=== PATIENT | female | born 1980 | race Caucasian/White ===

== ENCOUNTER 2018-08-18 17:57 | Emergency (ER) | payer OTHER ==
[2018-08-18 18:22] VITALS: BP 138/78; PULSE 66; TEMP 98.1; BMI 27.4
--- NOTE | 2018-08-18 18:23 | PDOC ---
Rapid Medical Evaluation Medical Evaluation: Allergies Allergy/AdvReac Type Severity Reaction Status Date / Time No Known Allergies Allergy Verified 08/18/18 18:19 08/18/18 18:22 The patient presents with a chief complaint of: left breast redness worsening over the last 6 weeks, no drainage, not nursing I have performed a brief in-person evaluation of this patient; Pertinent physical exam findings: ambulatory, in no respiratory distress, noted tender erythematous 2/3 cm mass to 7 oclock of left breast in areolar region. No nipple drainage I have ordered the following: breast u/s to r/o abscess The patient will proceed to the ED for further evaluation. Discharge Disposition - Diagnosis Breast pain, left - Referrals - Patient Instructions - Post Discharge Activity
--- NOTE | 2018-08-18 20:34 | PDOC ---
History of Present Illness - General Chief Complaint: Wound Stated Complaint: PAIN IN LT BREAST Time Seen by Provider: 08/18/18 18:24 History Source: Patient Exam Limitations: No Limitations - History of Present Illness Initial Comments: CHIEF COMPLAINT: 42 y/o afebrile female with no significant PMH c/o left breast lump x 1 month. HISTORY OF PRESENT ILLNESS: The patient states she noticed the lump 1 month ago but it was not painful. Over the past 1 week it's become red and painful. She denies fever, streaking, weight loss, discharge or bleeding from nipple, nipple inversion. She does not have a PMD but had a normal PAP smear 1 month ago. Vital signs on arrival are within normal limits. REVIEW OF SYSTEMS: GENERAL/CONSTITUTIONAL: No fever/chills. No weakness. No weight change. HEAD, EYES, EARS, NOSE AND THROAT: No change in vision. No ear pain or discharge. No sore throat. CARDIOVASCULAR: No chest pain or shortness of breath. SKIN: +Painful lump to left breast NEUROLOGIC: No headache, vertigo, loss of consciousness, or loss of sensation. PHYSICAL EXAM: VITAL_SIGNS: within normal limits GENERAL_APPEARANCE: alert, cooperative, mild obvious discomfort. MENTAL_STATUS: speech clear, oriented X 3, responds appropriately to questions. NEURO: motor intact and sensory intact in injured extremity. SKIN: 2cm in diameter, elevated, erythematous, warm lesion that is TTP of the left breast at the 7 o'clock position. The lesion travels underneath the areola and is felt under the skin at the 5 o'clock position. No streaking. No Cherri d'orange. No nipple inversion. No discharge/blood from the left nipple. No lesions felt in the left Tail of dias. Past History - Past Medical History Allergies/Adverse Reactions: Allergies Allergy/AdvReac Type Severity Reaction Status Date / Time No Known Allergies Allergy Verified 08/18/18 18:19 Home Medications: Ambulatory Orders Aspirin [ASA -] 325 mg PO ONCE 08/18/18 Cephalexin Monohydrate [Keflex -] 500 mg PO Q6H #28 capsule 08/18/18 Ibuprofen [Advil -] 600 mg PO TID PRN 08/18/18 COPD: No - Suicide/Smoking/Psychosocial Hx Smoking History: Never smoked *Physical Exam - Vital Signs Last Vital Signs Temp Pulse Resp BP Pulse Ox 98.1 F 66 16 138/78 99 08/18/18 18:21 08/18/18 18:21 08/18/18 18:21 08/18/18 18:21 08/18/18 18:21 Moderate Sedation - Procedure Monitoring Vital Signs: Procedure Monitoring Vital Signs Temperature 98.1 F 08/18/18 18:21 Pulse Rate 66 08/18/18 18:21 Respiratory Rate 16 08/18/18 18:21 Blood Pressure 138/78 08/18/18 18:21 O2 Sat by Pulse Oximetry (%) 99 08/18/18 18:21 Medical Decision Making - Medical Decision Making A/P: 38 y/o female with abscess vs mass to left breast. Plan is as follows: 1. Ultrasound left breast r/o abscess Ultrasound left breast IMPRESSION: no results from imaging pupil personnel services director after 4 hours will discharge patient. Suggested she call tomorrow morning for results Will send rx for keflex. INformed the patient it could be an infection but worst case scenario cancer. Provided her with 2 referrals and strongly encouraged her to f/u. The patient verbalizes understanding of all instructions, has no further questions and is awaiting discharge. *DC/Admit/Observation/Transfer Diagnosis at time of Disposition: Breast pain, left - Prescriptions Prescriptions: Cephalexin Monohydrate [Keflex -] 500 mg PO Q6H #28 capsule - Referrals Referrals: Maximiliano Marshall MD [Staff Physician] - Call tomorrow Jonathan Harvey MD [Staff Physician] - Call tomorrow - Patient Instructions Printed Discharge Instructions: DI for Breast Mass -- Uncertain Cause, DI for Skin Abscess Additional Instructions: Discharge Instructions: -You have a lump in your breast. It may be an infection. The worse case scenario is that the lump could be cancer. -It is very important that you call the 2 doctors referred to you to schedule follow up appointments as soon as possible for further testing -Antibiotics have been sent to your pharmacy; please take as prescribed -Return to the ER with any worsening or concerning symptoms Instrucciones de descarga: -Tienes un bulto en tu pecho. Puede ser lucretia infeccin. El peor de los casos es que el bulto podra ser cncer. -Es muy importante que llame a los 2 mdicos que lo hall remitido para programar citas de seguimiento dsouza pronto ronald sea posible para realizar ms pruebas. -Los antibiticos hall sido enviados a cárdenas farmacia; por favor tome segn lo prescrito -Regreso a la sadie de emergencias con cualquier empeoramiento o sntomas relacionados Print Language: MALTESE - Post Discharge Activity
--- NOTE | 2018-08-19 16:11 | PDOC ---
Patient Follow-up (Call Back) - Post ED Follow - Up Condition at time of discharge: Stable Disposition at time of original discharge: HOME Reason for Call Back: Radiology (Left breast fluid collection. Pt reports symptoms have improved and she has appointment with a surgeon.) Signs/Symptoms Improved: Yes
== END 2018-08-18 23:07 | disposition home or self-care (01) ==
LOC: JERFT 17:57
DX: N64.4 Mastodynia (principal)
CPT/HCPCS: 76642-TC-LT; 99281-25

== ENCOUNTER 2018-08-20 21:11 | Emergency (ER) | payer OTHER ==
[2018-08-20 21:14] VITALS: BP 110/51; PULSE 78; TEMP 98.3; BMI 27.2
--- NOTE | 2018-08-20 22:42 | PDOC ---
Attending Attestation - HPI HPI: 08/20/18 22:53 The patient is a 38 year old female, with no significant past medical history, who presents to the emergency department with, left breast lump. Patient notes she was recently evaluated in the ED and discharged with Keflex, OB, and general surgery follow up. She notes her symptoms have not resolved and the referring physicians did not accept her insurance, prompting her return. She denies recent fevers, chills, headache or dizziness. She denies recent nausea, vomit, diarrhea or constipation. She denies recent dysuria, frequency, urgency or hematuria. She denies recent chest pain or shortness of breath. Allergies: NKDA Past surgical history: None reported. Social history: Nonsmoker. Denies EtOH use and recreational drug use. <Laurie Mera - Last Filed: 08/20/18 22:52> - Resident Resident Name: Obie Juárez - ED Attending Attestation I have performed the following: I have examined & evaluated the patient, The case was reviewed & discussed with the resident, I agree w/resident's findings & plan, Exceptions are as noted - Physicial Exam PE: 08/20/18 23:01 Left breast with visible erythema on medial side of nipple, mild induration, 2 palpable mobile masses one medially and another inferolaterally No nipple discharge, smooth overlying skin, pink, perfusing, no signs of necrosis - Medical Decision Making 08/20/18 23:03 US report from prior visit with 2cm lesions consistent with abscess. Pt states that she was unable to arrange follow up with the physicians she was referred to. Will expedite appropriate follow up with gen surg breast/OB DC <Memo Marcus - Last Filed: 08/20/18 23:05> Attestations - Attestations 08/20/18 22:53 Documentation prepared by Laurie Mera, acting as medical reception for Memo Marcus MD. <Laurie Mera - Last Filed: 08/20/18 22:52>
--- NOTE | 2018-08-20 22:53 | PDOC ---
History of Present Illness - General Chief Complaint: Abscess Boil Stated Complaint: SENT BY PCP Time Seen by Provider: 08/20/18 21:58 History Source: Patient Exam Limitations: No Limitations - History of Present Illness Initial Comments: 08/20/18 22:39 Patient is a 38F here today complaining of a breast mass for 6 weeks. She was evaluated two days ago in the ED, diagnosed with a possible breast abscess. She reports taking keflex in that time period to no effect. US showed likely abscess. Patient reports a fractured work up at both [facility] and in the ED. She states that she is returning because the pain increased and she received a phone call stating that she may be able to have this drained. Denies fevers, chills, nausea, vomiting. Endorses compliance with antibiotics. Ibuprofen is relieving pain. Past History - Past Medical History Allergies/Adverse Reactions: Allergies Allergy/AdvReac Type Severity Reaction Status Date / Time No Known Allergies Allergy Verified 08/20/18 21:14 Home Medications: Ambulatory Orders Sulfamethoxazole/Trimethoprim [Bactrim Ds -] 1 tab PO BID #14 tablet 08/20/18 COPD: No - Suicide/Smoking/Psychosocial Hx Smoking History: Never smoked Review of Systems - Review of Systems Comments:: 08/20/18 22:52 GENERAL/CONSTITUTIONAL: No fever or chills. No weakness. HEAD, EYES, EARS, NOSE AND THROAT: No change in vision. No sore throat. CARDIOVASCULAR: No chest pain or shortness of breath RESPIRATORY: No cough, wheezing, or hemoptysis. GASTROINTESTINAL: No nausea, vomiting, diarrhea or constipation. GENITOURINARY: No dysuria, frequency, or change in urination. MUSCULOSKELETAL: No joint or muscle swelling or pain. No neck or back pain. SKIN: No rash NEUROLOGIC: No headache, vertigo, loss of consciousness, or change in strength/ sensation. ALLERGIC/IMMUNOLOGIC: No hives or skin allergy. *Physical Exam - Vital Signs Last Vital Signs Temp Pulse Resp BP Pulse Ox 98.3 F 78 18 110/51 L 99 08/20/18 21:12 08/20/18 21:12 08/20/18 21:12 08/20/18 21:12 08/20/18 21:12 - Physical Exam Comments: 08/20/18 22:53 GENERAL: Awake, alert, and fully oriented, in no acute distress L BREAST: 1x1cm area of erythema at 9 o'clock, small mobile masses at 3 o'clock and 6 o'clock HEAD: No signs of trauma, normocephalic, atraumatic EYES: PERRLA, EOMI, sclera anicteric, conjunctiva clear ENT: Auricles normal inspection, hearing grossly normal, nares patent, oropharynx clear without exudates. Moist mucosa NECK: Normal ROM, supple, no lymphadenopathy, JVD, or masses LUNGS: No distress, speaks full sentences, clear to auscultation bilaterally HEART: Regular rate and rhythm, normal S1 and S2, no murmurs, rubs or gallops, peripheral pulses normal and equal bilaterally. NEUROLOGICAL: Cranial nerves II through XII grossly intact. Normal speech, normal gait, no focal sensorimotor deficits SKIN: Warm, Dry, normal turgor, no rashes or lesions noted. Moderate Sedation - Procedure Monitoring Vital Signs: Procedure Monitoring Vital Signs Temperature 98.3 F 08/20/18 21:12 Pulse Rate 78 08/20/18 21:12 Respiratory Rate 18 08/20/18 21:12 Blood Pressure 110/51 L 08/20/18 21:12 O2 Sat by Pulse Oximetry (%) 99 08/20/18 21:12 Medical Decision Making - Medical Decision Making 08/20/18 22:56 Patient is 38F with breast mass. Currently on keflex. Patient has been unable to get follow up 2/2 insurance issues. Do not believe appropriate to drain at this time, will increase coverage to bactrim. Will discharge with other referrals, instructions to search for provider that takes their insurance. *DC/Admit/Observation/Transfer Diagnosis at time of Disposition: Breast pain, left - Discharge Dispostion Disposition: HOME Condition at time of disposition: Good Decision to Admit order: No - Prescriptions Prescriptions: Sulfamethoxazole/Trimethoprim [Bactrim Ds -] 1 tab PO BID #14 tablet - Referrals Referrals: Rohit Carrera MD [Staff Physician] - Deven Rangel MD [Staff Physician] - Homar Zamudio MD [Staff Physician] - Malvin Mares MD [Staff Physician] - - Patient Instructions Printed Discharge Instructions: DI for Breast Pain (Mastalgia) Additional Instructions: Please follow up with one of the surgeons below. If they do not accept your insurance, clinics are available at [facility], [facility], or [facility]. You can also search for 'General Surgeons' or 'Breast Surgeons' in your area that accept your insurance. - Post Discharge Activity Forms/Work/School Notes: Back to Work
== END 2018-08-20 23:21 | disposition home or self-care (01) ==
LOC: JER 21:11
DX: N64.4 Mastodynia (principal); N63.20 Unspecified lump in the left breast, unspecified quadrant
CPT/HCPCS: 99281-25

== ENCOUNTER 2018-08-31 10:55 | Day surgery (SDC) | payer OTHER ==
--- NOTE | 2018-08-31 13:31 | PDOC ---
History of Present Illness - General History Source: Patient - History of Present Illness Timing/Duration: other <XochitlCheyenne - Last Filed: 08/31/18 15:05> <Noe Albrecht - Last Filed: 09/03/18 09:37> - General Chief Complaint: Pain Stated Complaint: LUMP ON BREAST Time Seen by Provider: 08/31/18 13:21 Past History - Past Medical History COPD: No - Immunization History Immunization Up to Date: Yes - Suicide/Smoking/Psychosocial Hx Smoking History: Never smoked Hx Alcohol Use: No Drug/Substance Use Hx: No <KyrgyzCheyenne - Last Filed: 08/31/18 15:05> <Noe Albrecht - Last Filed: 09/03/18 09:37> - Past Medical History Allergies/Adverse Reactions: Allergies Allergy/AdvReac Type Severity Reaction Status Date / Time No Known Allergies Allergy Verified 08/31/18 11:50 Home Medications: Ambulatory Orders Acetaminophen W/ Codeine #3 [Tylenol # 3 -] 1 tab PO Q6H PRN #12 tablet MDD 4 *Physical Exam - Vital Signs Last Vital Signs Temp Pulse Resp BP Pulse Ox 98.3 F 64 18 124/67 99 08/31/18 11:51 08/31/18 11:51 08/31/18 11:51 08/31/18 11:51 08/31/18 11:51 - Physical Exam General Appearance: Yes: Appropriately Dressed. No: Apparent Distress HEENT: positive: Normal Voice Neck: positive: Supple. negative: Lymphadenopathy (R), Lymphadenopathy (L) Respiratory/Chest: negative: Respiratory Distress Integumentary: positive: Dry, Warm, Other (4x6cm induration to inferior L breast w/ ?1x1 cm area of erythema at site of medial areola) Neurologic: positive: Fully Oriented, Alert, Normal Mood/Affect <KyrgyzCheyenne - Last Filed: 08/31/18 15:05> - Vital Signs Last Vital Signs Temp Pulse Resp BP Pulse Ox 97.9 F 61 20 111/54 L 99 09/02/18 09:00 09/02/18 09:00 09/02/18 09:00 09/02/18 09:00 09/01/18 22:00 <Noe Albrecht - Last Filed: 09/03/18 09:37> Moderate Sedation - Procedure Monitoring Vital Signs: Procedure Monitoring Vital Signs Temperature 98.3 F 08/31/18 11:51 Pulse Rate 64 08/31/18 11:51 Respiratory Rate 18 08/31/18 11:51 Blood Pressure 124/67 08/31/18 11:51 O2 Sat by Pulse Oximetry (%) 99 08/31/18 11:51 <Cheyenne Leung - Last Filed: 08/31/18 15:05> - Procedure Monitoring Vital Signs: Procedure Monitoring Vital Signs Temperature 97.9 F 09/02/18 09:00 Pulse Rate 61 09/02/18 09:00 Respiratory Rate 20 09/02/18 09:00 Blood Pressure 111/54 L 09/02/18 09:00 O2 Sat by Pulse Oximetry (%) 99 09/01/18 22:00 <Noe Albrecht - Last Filed: 09/03/18 09:37> ED Treatment Course - LABORATORY CBC & Chemistry Diagram: 08/31/18 13:50 08/31/18 13:50 <Cheyenne Leung - Last Filed: 08/31/18 15:05> - LABORATORY CBC & Chemistry Diagram: 08/31/18 13:50 08/31/18 13:50 - ADDITIONAL ORDERS Additional order review: 09/01/18 09:30 Gram Stain - Final Abscess Wound Culture - Final NO AEROBIC OR ANAEROBIC GROWTH OBTAINED. 08/31/18 13:50 RBC 4.99 MCV 74.3 L MCHC 33.6 RDW 15.2 MPV 8.6 Neutrophils % 76.8 Lymphocytes % 17.6 Monocytes % 4.5 Eosinophils % 0.9 Basophils % 0.2 - Medications Given in the ED: ED Medications Discontinued Medications Generic Name Dose Route Start Last Admin Trade Name Freq PRN Reason Stop Dose Admin Acetaminophen 1,000 mg 09/01/18 10:31 09/01/18 10:45 Ofirmev Injection - IVPB 09/01/18 10:32 1,000 mg ONCE ONE Administration Acetaminophen 1,000 mg 09/01/18 10:32 09/01/18 23:12 Ofirmev Injection - IVPB 1,000 mg Q6H PRN Administration PAIN LEVEL 6-10 Fentanyl 25 mcg 09/01/18 10:11 09/01/18 10:55 Sublimaze Injection - IVPUSH 25 mcg [id number] PRN Administration PAIN-PACU ORDER X 4 DOSES ONLY Clindamycin Phosphate 600 mg in 50 mls @ 100 mls/hr 08/31/18 14:17 08/31/18 15:22 Cleocin 600 Mg Premix Ivpb - IVPB 08/31/18 14:46 100 mls/hr ONCE ONE Administration Protocol Cefazolin Sodium 1 gm in 50 mls @ 100 mls/hr 09/01/18 10:00 09/01/18 09:09 Ancef 1 Gm Premixed Ivpb - IVPB 100 mls/hr Q8H-IV CLEMENTINE Administration Lactated Ringer's 1,000 ml in 1,000 mls @ 75 mls/hr 09/01/18 10:45 09/01/18 10:45 Lactated Ringers Solution IV Not Given ASDIR CLEMENTINE Cefazolin Sodium 1 gm in 50 mls @ 100 mls/hr 09/01/18 18:00 09/02/18 09:10 Ancef 1 Gm Premixed Ivpb - IVPB 100 mls/hr Q8H-IV CLEMENTINE Administration Ketorolac Tromethamine 30 mg 08/31/18 13:31 09/01/18 11:10 Toradol Injection - IVPUSH 08/31/18 13:32 30 mg ONCE ONE Administration Ketorolac Tromethamine 30 mg 09/02/18 08:26 09/02/18 08:56 Toradol Injection - IVPUSH 09/07/18 08:25 30 mg Q6H PRN Administration PAIN LEVEL 1-5 Morphine Sulfate 2 mg 09/02/18 07:21 09/02/18 07:50 Morphine Sulfate IVPUSH 09/02/18 07:22 2 mg ONCE ONE Administration <Noe Albrecht - Last Filed: 09/03/18 09:37> Medical Decision Making - Medical Decision Making 08/31/18 13:29 38 yo F, here for 3rd visit in the past 2 weeks for L breast abscess/ cellulitis. Has since been given 2 course of antibiotics with initial improvement in pain but states for the past several days, pain has recurred and is severe. No fever or chills. States she saw Dr. Carrera last week and was put on the schedule for I&D in the OR, but was unable to follow-up secondary to insurance issues. Not currently breast-feeding or . No personal history of breast disease, but does have remote family history of breast cancer See exam L breast abscess Not improve w/ multiple courses of abx -pain control -IV abx -labs -US -d/w surgery 08/31/18 14:[address] Carrera of surgery, who recommends IV antibiotics and admit to his service for I&D in the a.m. 08/31/18 15:05 Results reviewed and discussed with Dr. Carrera who is currently at bedside <Cheyenne Leung - Last Filed: 08/31/18 15:05> - Medical Decision Making 09/03/18 09:37 The patient was seen and evaluated in conjunction with TREVOR Leung under my direct supervision, ancillary studies were reviewed. I agree with the plan as outlined by TREVOR Leung . <Noe Albrecht - Last Filed: 09/03/18 09:37> *DC/Admit/Observation/Transfer - Discharge Dispostion Decision to Admit order: Yes <Cheyenne Leung - Last Filed: 08/31/18 15:05> <Noe Albrecht - Last Filed: 09/03/18 09:37> Diagnosis at time of Disposition: Left breast abscess - Discharge Dispostion Disposition: HOME Condition at time of disposition: Fair
[2018-08-31] MEDS ORDERED: KETOROLAC TROMETHAMINE 30 MG/1 ML VIAL ONE (13:40)
[2018-08-31] MEDS: KETOROLAC TROMETHAMINE 30 MG/1 ML VIAL IVPUSH ONE (13:53)
[2018-08-31 14:15] LABS: BASO % 0.2 % (0-2.0); EOS % 0.9 % (0-4.5); HEMATOCRIT 37.1 % (32.4-45.2); HEMOGLOBIN 12.5 GM/dL (10.7-15.3); LYMPH % 17.6 % (8-40); MCHC 33.6 g/dl (32.0-36.0); MEAN CELL VOLUME 74.3 fl (80-96); MEAN PLT VOLUME 8.6 fl (7.5-11.1); MONO % 4.5 % (3.8-10.2); NEUT % 76.8 % (42.8-82.8); PLATELET COUNT 331 K/MM3 (134-434); RBC 4.99 M/mm3 (3.60-5.2); RDW 15.2 % (11.6-15.6); WHITE BLOOD COUNT 8.1 K/mm3 (4.0-10.0)
[2018-08-31] MEDS ORDERED: CLINDAMYCIN 600MG PREMIX IVPB 600 MG/50 ML BAG IVPB ONE ×2 (14:17→15:18)
[2018-08-31 14:21] LABS: HCG,QUALITATIVE URINE Negative; URINE APPEARANCE SLCLOUDY; URINE BILIRUBIN NEGATIVE (<2.0 mg/dL); URINE COLOR YELLOW; URINE GLUCOSE (UA) NEGATIVE (NEGATIVE); URINE KETONE NEGATIVE (NEGATIVE); URINE LEUK ESTERASE TRACE (NEGATIVE); URINE NITRITE NEGATIVE (NEGATIVE); URINE PROTEIN NEGATIVE (NEGATIVE); URINE UROBILINOGEN NEGATIVE mg/dL (0.2-1.0)
[2018-08-31 14:37] LABS: INR 1.12 (0.83-1.09); PROTHROMBIN TIME (PATIENT) 13.2 SEC (9.7-13.0)
[2018-08-31 14:39] LABS: EPI CELLS MODERATE /HPF (FEW); URINE MUCUS RARE
[2018-08-31 14:55] LABS: ALBUMIN 3.8 g/dl (3.4-5.0); ALK PHOS 121 U/L (45-117); ANION GAP 7 MMOL/L (8-16); BILIRUBIN,TOTAL 0.3 mg/dL (0.2-1); BLOOD UREA NITROGEN 9 mg/dL (7-18); CALCIUM 8.8 mg/dL (8.5-10.1); CHLORIDE 103 mmol/L (98-107); CO2 27 mmol/L (21-32); CREATININE 0.5 mg/dL (0.55-1.3); GLUCOSE,RANDOM 83 mg/dL (74-106); SGOT/AST 14 U/L (15-37); SGPT/ALT 23 U/L (13-61); SODIUM 137 mmol/L (136-145); TOT PROT 7.7 g/dl (6.4-8.2)
--- NOTE | 2018-08-31 16:56 | SPA.PREOP ---
- PRE-OP NOTE Dx: Left breast abscess Planned Procedure: I&D of left breast abscess 09/01 Surgeon: Dr Rohit Carrera Last Vital Signs Temp Pulse Resp BP Pulse Ox 98.3 F 64 18 124/67 99 08/31/18 11:51 08/31/18 11:51 08/31/18 11:51 08/31/18 11:51 08/31/18 11:51 Lab Results WBC 8.1 K/mm3 (4.0-10.0) 08/31/18 13:50 RBC 4.99 M/mm3 (3.60-5.2) 08/31/18 13:50 Hgb 12.5 GM/dL (10.7-15.3) 08/31/18 13:50 Hct 37.1 % (32.4-45.2) 08/31/18 13:50 MCV 74.3 fl (80-96) L 08/31/18 13:50 MCHC 33.6 g/dl (32.0-36.0) 08/31/18 13:50 RDW 15.2 % (11.6-15.6) 08/31/18 13:50 Plt Count 331 K/MM3 (134-434) 08/31/18 13:50 Sodium 137 mmol/L (136-145) 08/31/18 13:50 Potassium 4.0 mmol/L (3.5-5.1) 08/31/18 13:50 Chloride 103 mmol/L (98-107) 08/31/18 13:50 Carbon Dioxide 27 mmol/L (21-32) 08/31/18 13:50 Anion Gap 7 MMOL/L (8-16) L 08/31/18 13:50 BUN 9 mg/dL (7-18) 08/31/18 13:50 Creatinine 0.5 mg/dL (0.55-1.3) L 08/31/18 13:50 Random Glucose 83 mg/dL (74-106) 08/31/18 13:50 Calcium 8.8 mg/dL (8.5-10.1) 08/31/18 13:50 Blood Type O POSITIVE 08/31/18 13:50 Antibody Screen Negative 08/31/18 13:50 INR 1.12 (0.83-1.09) H 08/31/18 13:50 - IMAGING Other: Report Reviewed (Breast U/S: 08/31/18: Again noted in the 9:00 periareolar region of the left breast, intradermally is a 2.5x1.9x0.3cm fluid collection.) - ASSESSMENT/PLAN 1. Make NPO after midnight except po meds 2. GI/DVT PPX 3. Medical optimization / clearance 4. Consent to be obtained by surgeon after risks, benefits and alternatives discussed with patient and or Health Care Proxy.
[2018-08-31] MEDS ORDERED: ACETAMINOPHEN 500 MG TABLET (FP) PO ONE (23:07)
[2018-09-01 00:46] VITALS: BMI 26.7
[2018-09-01] MEDS ORDERED: ACETAMINOPHEN 325 MG TABLET (FP) PO PRN ×2 (07:12→08:15)
[2018-09-01] MEDS ORDERED: CEFAZOLIN 1 GM in DEXTROSE 5%-WATER - 50 ML IVPB SCH (07:30)
--- NOTE | 2018-09-01 09:06 | HP ---
CHIEF COMPLAINT: left breast abscess PCP: unknown HISTORY OF PRESENT ILLNESS: 38 y/o F w/ no significant PMHx now admitted with left breast abscess, planned for I&D in OR. Pt reports breast abscess started 6 weeks ago. Pt was seen by in ED on 2 separate occasions and given 2 separate courses of PO abx (Keflex, Bactrim DS). Reports completing both courses without improvement in sxs. Denies fever/chills at home. Recent Travel: none PAST MEDICAL HISTORY: none PAST SURGICAL HISTORY: unknown Social History: Smoking:no Alcohol:social Drugs: no Family History: unknown Allergies: none No Known Allergies Allergy (Verified 08/31/18 11:50) HOME MEDICATIONS: none Home Medications Medication Instructions Recorded NK [No Known Home Medication] 08/31/18 REVIEW OF SYSTEMS CONSTITUTIONAL: Absent: fever, chills CARDIOVASCULAR: Absent: chest pain RESPIRATORY: Absent: cough, shortness of breath GASTROINTESTINAL: Absent: abdominal pain PHYSICAL EXAMINATION Vital Signs - 24 hr 08/31/18 08/31/18 08/31/18 11:51 18:00 19:50 Temperature 98.3 F 98.1 F Pulse Rate 64 70 Pulse Rate [ 69 Apical] Respiratory 18 18 18 Rate Blood Pressure 124/67 124/75 Blood Pressure 104/54 L [Right Arm] O2 Sat by Pulse 99 100 Oximetry (%) 08/31/18 08/31/18 09/01/18 22:00 22:54 06:07 Temperature 98.2 F 98.2 F 98.2 F Pulse Rate 55 L 76 92 H Pulse Rate [ Apical] Respiratory 16 20 Rate Blood Pressure 111/71 157/78 105/63 Blood Pressure [Right Arm] O2 Sat by Pulse 100 Oximetry (%) 09/01/18 08:55 Temperature 98.5 F Pulse Rate 59 L Pulse Rate [ Apical] Respiratory 20 Rate Blood Pressure 90/46 L Blood Pressure [Right Arm] O2 Sat by Pulse Oximetry (%) GENERAL: Awake, alert, and fully oriented, in no acute distress. HEAD: Normal with no signs of trauma. LUNGS: Breath sounds equal, clear to auscultation bilaterally. No wheezes, and no crackles. No accessory muscle use. Breast: left breast with +induration/ttp along nipple crease from 4-8 o'clock position. HEART: Regular rate and rhythm, normal S1 and S2. ABDOMEN: Soft, nontender, not distended, normoactive bowel sounds, no guarding, no rebound. Laboratory Results - last 24 hr 08/31/18 08/31/18 08/31/18 13:50 13:50 13:50 WBC 8.1 RBC 4.99 Hgb 12.5 Hct 37.1 MCV 74.3 L MCH 25.0 L MCHC 33.6 RDW 15.2 Plt Count 331 MPV 8.6 Absolute Neuts (auto) 6.2 Neutrophils % 76.8 Lymphocytes % 17.6 Monocytes % 4.5 Eosinophils % 0.9 Basophils % 0.2 Nucleated RBC % 0 PT with INR 13.20 H INR 1.12 H Sodium Potassium Chloride Carbon Dioxide Anion Gap BUN Creatinine Creat Clearance w eGFR Random Glucose Calcium Total Bilirubin AST ALT Alkaline Phosphatase Total Protein Albumin Urine Color Yellow Urine Appearance Slcloudy Urine pH 6.0 Ur Specific [place] 1.011 Urine Protein Negative Urine Glucose (UA) Negative Urine Ketones Negative Urine Blood Negative Urine Nitrite Negative Urine Bilirubin Negative Urine Urobilinogen Negative Ur Leukocyte Esterase Trace Urine WBC (Auto) 1 Urine RBC (Auto) <1 Ur Epithelial Cells Moderate Urine Mucus Rare Urine HCG, Qual Negative Blood Type Antibody Screen 08/31/18 08/31/18 13:50 13:50 WBC RBC Hgb Hct MCV MCH MCHC RDW Plt Count MPV Absolute Neuts (auto) Neutrophils % Lymphocytes % Monocytes % Eosinophils % Basophils % Nucleated RBC % PT with INR INR Sodium 137 Potassium 4.0 Chloride 103 Carbon Dioxide 27 Anion Gap 7 L BUN 9 Creatinine 0.5 L Creat Clearance w eGFR > 60 Random Glucose 83 Calcium 8.8 Total Bilirubin 0.3 AST 14 L ALT 23 Alkaline Phosphatase 121 H Total Protein 7.7 Albumin 3.8 Urine Color Urine Appearance Urine pH Ur Specific [place] Urine Protein Urine Glucose (UA) Urine Ketones Urine Blood Urine Nitrite Urine Bilirubin Urine Urobilinogen Ur Leukocyte Esterase Urine WBC (Auto) Urine RBC (Auto) Ur Epithelial Cells Urine Mucus Urine HCG, Qual Blood Type O POSITIVE Antibody Screen Negative ASSESSMENT/PLAN: 38 y/o F w/ no significant PMHx now admitted with Left breast abscess, planned for OR today with Dr Carrera for I&D. -NPO -Ancef 1g q8hrs -B/L SCDs -Labs reviewed from yesterday pt seen and examined with attending Dr Carrera Problem List - Problem (1) Left breast abscess Code(s): N61.1 - ABSCESS OF THE BREAST AND NIPPLE Visit type - Emergency Visit Emergency Visit: Yes Care time: The patient presented to the Emergency Department on the above date and was hospitalized for further evaluation of their emergent condition. - New Patient This patient is new to me today: Yes Date on this admission: 09/02/18 - Critical Care Critical Care patient: No
[2018-09-01] MEDS ORDERED: MIDAZOLAM HCL 2 MG/2 ML SINGLE DOSE VIAL ONE (09:40)
[2018-09-01] MEDS ORDERED: DEXAMETHASONE SOD PHOSPHATE 4 MG/1 ML VIAL ONE (09:41)
[2018-09-01] MEDS ORDERED: PROPOFOL 20 ML ONE (09:42)
[2018-09-01] MEDS ORDERED: LIDOCAINE HCL/PF 2% SDV 5ML VIAL ONE (09:42)
[2018-09-01] MEDS ORDERED: CEFAZOLIN 1 GM/D5W 1 GM/50 ML BAG IVPB SCH (10:00)
[2018-09-01] MEDS ORDERED: ACETAMINOPHEN INJECTION 100 ML IVPB ONE (10:26)
--- NOTE | 2018-09-01 10:29 | OP ---
Operative Note - Note: Operative Date: 09/01/18 Pre-Operative Diagnosis: left breast abscess and mass Operation: I and D left breast abscess and incisional bx. Post-Operative Diagnosis: Same as Pre-op Surgeon: Rohit Carrera Anesthesiologist/MD PHYSICIAN DERMATOLOGIST: Saravanan Salcido Anesthesia: General Specimens Removed: incisional bx. left breast mas and C and S abscess Estimated Blood Loss (mls): 10 Drains & Tubes with Location: deb and packing
[2018-09-01] MEDS ORDERED: ACETAMINOPHEN 1000 MG/100 ML VIAL (NON FORMULARY) IVPB ONE (10:31)
[2018-09-01] MEDS ORDERED: KETOROLAC TROMETHAMINE 30 MG/1 ML VIAL IVPUSH ONE (10:41)
[2018-09-01] MEDS ORDERED: LACTATED RINGERS SOLUTION 1,000 ML/1,000 ML INFUS.BAG IV SCH (10:45)
[2018-09-01] MEDS: KETOROLAC TROMETHAMINE 30 MG/1 ML VIAL IVPUSH ONE (11:10)
[2018-09-01] MEDS: ACETAMINOPHEN 1000 MG/100 ML VIAL (NON FORMULARY) IVPB PRN ×2 (16:25→23:12)
[2018-09-01] MEDS: CEFAZOLIN 1 GM/D5W 1 GM/50 ML BAG IVPB SCH (18:26)
[2018-09-02] MEDS: CEFAZOLIN 1 GM/D5W 1 GM/50 ML BAG IVPB SCH ×2 (02:12→09:10)
[2018-09-02] MEDS ORDERED: MORPHINE SULFATE 2 MG/ML VIAL IVPUSH ONE (07:21)
[2018-09-02] MEDS ORDERED: CEFAZOLIN 1 GM/D5W 1 GM/50 ML BAG IVPB SCH (07:30)
--- NOTE | 2018-09-02 08:01 | OP ---
DATE OF OPERATION: PREOPERATIVE DIAGNOSIS: Left breast abscess and mass. POSTOPERATIVE DIAGNOSIS: Left breast abscess and mass. PROCEDURE: Incision and drainage of left breast abscess and incisional biopsy of the left breast mass. SURGEON: Rohit Carrera MD ANESTHESIA: General. OPERATIVE FINDINGS: There was a left breast abscess at approximately the 7-9 o' clock position at the nipple-areolar border with tunneling medially and towards the 3 o'clock position of the left breast at the nipple-areolar border, with extensive fibrotic retroareolar changes consistent with an ill-defined mass. The rest of the findings are unremarkable. DESCRIPTION OF PROCEDURE: The patient was placed on the operating table in supine position, and after the induction of general anesthesia, the patient's left breast was prepped with ChloraPrep and draped in sterile fashion. A timeout was taken , and a circumareolar incision was made over the area of fluctuance in the left breast at 9 o'clock, with drainage of purulent material. This was sent for culture and sensitivity. All loculations were broken up using blunt dissection. Further dissection was carried towards the 3 o'clock area of the nipple-areolar border and all loculations and purulent drainage removed. Copious irrigation was carried out with sterile water, and then using a scalpel, a portion of the retroareolar mass was excised and sent for pathological examination. Hemostasis was secured with electrocautery, and then a Reggie drain placed into the wound along with 1/2- inch Iodoform packing. A single nylon suture was placed at the midpoint of the incision to reapproximate the nipple-areolar border and anchor the Gall[place] drain. Dry sterile dressings were placed and the procedure terminated at this point and the patient aroused from general anesthesia and transferred to the postanesthesia care unit in stable condition, awake and alert. ESTIMATED BLOOD LOSS: 10 mL REPLACEMENT: Crystalloid. DRAINS: One Reggie and 1/2-inch packing in the wound. SPECIMENS: Portion of left breast mass and culture and sensitivity of purulent drainage to microbiology. I, Rohit Carrera, was physically present in the operating room from the time the patient was placed on the operating table until she was transferred to the postanesthesia care unit in [facility]. Rohit Bartlett MD /[id number] MTDD
[2018-09-02] MEDS ORDERED: oxyCODONE HCL 5 MG TABLET PO PRN (08:24)
[2018-09-02] MEDS ORDERED: KETOROLAC TROMETHAMINE 30 MG/1 ML VIAL IVPUSH PRN (08:26)
--- NOTE | 2018-09-02 09:43 | PN ---
Progress Note (short form) - Note Progress Note: POD 1, s/p I and D left breast abscess and incisional bx. Pt seen and examined. States she is doing well this AM. Pain has been controlled with PO and Iv pain meds. Has been oob to the bathroom. Tolerating PO. Denies n/v/d, cp/sob, calf pain/edema. Vital Signs Temp 98.8 F 09/02/18 05:41 Pulse 53 L 09/02/18 05:41 Resp 20 09/02/18 05:41 BP 105/51 L 09/02/18 05:41 Pulse Ox 99 09/01/18 22:00 Intake & Output 09/01/18 09/01/18 09/02/18 11:59 23:59 11:59 Intake Total 485 400 50 Output Total 5 Balance 480 400 50 Intake: IV 485 300 LACTATED RINGERS SOLUTION 300 1,000 ml In 1,000 ml @ 75 mls/hr IV ASDIR CLEMENTINE Rx #:[id number] SL 10 IVPB 100 50 Oral 0 0 Output: Urine 0 Estimated Blood Loss 5 Other: Voiding Method Toilet Toilet # Unmeasured Voids Void 0 2 Bowel Movement No CBC, BMP 08/31/18 13:50 08/31/18 13:50 Gen: awake, alert, nad Resp: unlabored Breast: L breast 4x4 with minimal dried blood and serous drainage. Reggie and packing removed, wound bed clean based with scant fibrinous exudate and serous drainage. No surrounding erythema, induration resolved. A/P: 38 y/o F w/ no significant PMHx now admitted with Left breast abscess, now POD 1, s/p I and D left breast abscess and incisional bx. -Continue Ancef 1g q8hrs -Pain control Toradol IV 30mg q6hrs prn, Oxycodone 5mg q6hrs prn, Ofirmev 1g q6hrs prn -Bowel regimen -Continue dressing changes with 4x4 gauze daily -F/U wound culture/biopsy -Possible d/c later today abov ed/w attending Dr Carrera
[2018-09-02 10:49] VITALS: BP 111/54; PULSE 61; TEMP 97.9
[2018-09-02] MEDS ORDERED: DOCUSATE SODIUM 100 MG CAPSULE (FP) PO SCH (14:00)
--- NOTE | 2018-09-03 17:46 | PATH ---
Surgical Pathology Report Patient Name: LINCOLN MULLEN Med. Rec. 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 PAS STAIN FOR FUNGI AND AFB STAIN ARE NEGATIVE. GRAM POSITIVE BACILLI ARE IDENTIFIED WITHIN MICROCYSTIC SPACES. 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 Recommend clinical correlation with microbiology cultures result if clinically indicated. Gram stain was performed at [place], [place] ([id number]) interpreted at [facility]. Electronically Signed Cuate Abbott M.D. Gross Description Received in formalin labeled "left breast biopsy," is a 1.5 x 1.1 cm dsouza, elliptical portion of skin excised to depth of 1.0 cm. The epidermal surface is unremarkable. Sectioning reveals a homogeneous dsouza, firm mass. The base is inked green and the specimen is serially sectioned. The specimen is entirely submitted in 2 cassettes. Total formalin fixation time: Approximately 6 hours DL/09/01/201809/01/2018
== END 2018-09-02 14:11 | disposition home or self-care (01) ==
LOC: JER 10:55 → UNDOADMIN 14:16 → JERBED 14:16 → JASUSAT 14:16 → J6S 20:49 → JERBED 20:49 → J6S 20:49 → JASUSAT 09-02 14:11
PROVIDERS: ATTEND Surgery
PROC: 0HBU0ZX Excision of Left Breast, Open Approach, Diagnostic (ICD-10-PCS; principal; 2018-08-31)
DX: N60.02 Solitary cyst of left breast (principal); N61.1 Abscess of the breast and nipple
CPT/HCPCS: 36415; 76641-TC-LT; 80053; 81003; 81015; 84703; 85025; 85610; 86850; 86900; 86901; 87070; 87205; 88305-TC; 88312-TC; 94010; 94760; 99282-25; J0131

== ENCOUNTER 2019-01-03 20:35 | Emergency (ER) | payer OTHER ==
[2019-01-03 20:42] VITALS: BP 112/54; PULSE 78; TEMP 98
[2019-01-03] MEDS ORDERED: LIDOCAINE 1%/EPI 1:100000 (50 ML MULTI DOSE VIAL) INF ONE (21:25)
[2019-01-03] MEDS ORDERED: IBUPROFEN 600 MG TABLET (FP) PO ONE ×2 (21:27→21:37)
[2019-01-03] MEDS ORDERED: LIDOCAINE 1%/EPI 1:100000 (20 ML MULTI DOSE VIAL) ONE (21:28)
--- NOTE | 2019-01-03 21:48 | PDOC ---
History of Present Illness - General Chief Complaint: Abscess Boil Stated Complaint: ABCESS UNDER LT BREAST Time Seen by Provider: 01/03/19 21:01 History Source: Patient Exam Limitations: No Limitations - History of Present Illness Initial Comments: 01/03/19 21:43 Patient is a 38F with history of prior breast abscess here today complaining of redness and swelling on the inferior aspect of her left breast. Patient reports that she was seen two days ago at [facility] where she was discharged with keflex and discharged with appointment tomorrow at Breast clinic at [facility]. The area of swelling two days ago was more lateral, and has been improving. The one worse today has been getting worse over the past week. Denies fevers, chills, nausea, vomiting. Patient denies discharge from nipple. Patient states that she had two biopsies and surgical removals of abscesses on her breast done, both negative for breast cancer. Followed in the past by Dr Carrera. Past History - Past Medical History Allergies/Adverse Reactions: Allergies Allergy/AdvReac Type Severity Reaction Status Date / Time No Known Allergies Allergy Verified 01/03/19 20:44 Home Medications: Ambulatory Orders Acetaminophen W/ Codeine #3 [Tylenol # 3 -] 1 tab PO Q6H PRN #12 tablet MDD 4 COPD: No - Immunization History Immunization Up to Date: Yes - Suicide/Smoking/Psychosocial Hx Smoking History: Never smoked Hx Alcohol Use: No Drug/Substance Use Hx: No Substance Use Type: None Hx Substance Use Treatment: No Review of Systems - Review of Systems Able to Perform ROS?: Yes Comments:: 01/03/19 21:46 GENERAL/CONSTITUTIONAL: No fever or chills. No weakness. HEAD, EYES, EARS, NOSE AND THROAT: No change in vision. No sore throat. CARDIOVASCULAR: No chest pain or shortness of breath RESPIRATORY: No cough, wheezing, or hemoptysis. GASTROINTESTINAL: No nausea, vomiting, diarrhea or constipation. GENITOURINARY: No dysuria, frequency, or change in urination. SKIN: +redness and swelling NEUROLOGIC: No headache, vertigo, loss of consciousness, or change in strength/ sensation. ALLERGIC/IMMUNOLOGIC: No hives or skin allergy. *Physical Exam - Vital Signs Last Vital Signs Temp Pulse Resp BP Pulse Ox 98.0 F 78 20 112/54 L 100 01/03/19 20:37 01/03/19 20:37 01/03/19 20:37 01/03/19 20:37 01/03/19 20:37 - Physical Exam Comments: 01/03/19 21:48 GENERAL: Awake, alert, and fully oriented, in no acute distress L BREAST: 4X2cm area of erythema and induration, tender, mobile HEAD: No signs of trauma, normocephalic, atraumatic EYES: PERRLA, EOMI, sclera anicteric, conjunctiva clear ENT: Auricles normal inspection, hearing grossly normal, nares patent, oropharynx clear without exudates. Moist mucosa NECK: Normal ROM, supple, no lymphadenopathy, JVD, or masses LUNGS: No distress, speaks full sentences, clear to auscultation bilaterally HEART: Regular rate and rhythm, normal S1 and S2, no murmurs, rubs or gallops, peripheral pulses normal and equal bilaterally. ABDOMEN: Soft, nontender, normoactive bowel sounds. No guarding, no rebound. No masses EXTREMITIES: Normal inspection, Normal range of motion, no edema. No clubbing or cyanosis. NEUROLOGICAL: Cranial nerves II through XII grossly intact. Normal speech, normal gait, no focal sensorimotor deficits SKIN: Warm, Dry, normal turgor, no rashes or lesions noted. Procedures - Incision and Drainage I&D Site: Left: Other (breast) Anesthesia: 1% Lidocaine w/ Epi Volume(ml): 6 Blade Size: 11 Attempts: 1 Plain Packing: No Complications: none Dressing: Yes Progress: 01/03/19 21:43 Tolerated without complication. Josesito pus expressed. ED Treatment Course - Medications Given in the ED: ED Medications Discontinued Medications Generic Name Dose Route Start Last Admin Trade Name Kristie PRN Reason Stop Dose Admin Ibuprofen 600 mg 01/03/19 21:27 01/03/19 21:42 Motrin - PO 01/03/19 21:28 600 mg ONCE ONE Administration Lidocaine/Epinephrine 5 ml 01/03/19 21:25 01/03/19 21:41 Xylocaine 1%-Epi 1:100,000 INF 01/03/19 21:26 5 ml ONCE ONE Administration Medical Decision Making - Medical Decision Making 01/03/19 21:49 Patient is 38F here today with breast abscess. Vitals normal and stable. I&D as per procedure note. Patient has appt tomorrow at [facility], will also give follow up for Dr Carrera. Will expand coverage to bactrim to cover likely MRSA. Patient already on keflex. Given return precautions. Importance of follow up stressed. *DC/Admit/Observation/Transfer Diagnosis at time of Disposition: Left breast abscess - Discharge Dispostion Disposition: HOME Condition at time of disposition: Good Decision to Admit order: No - Referrals - Patient Instructions Printed Discharge Instructions: DI for Incision and Drainage of a Skin Abscess Additional Instructions: Please follow up with Dr Carrera or [facility] as soon as possible. Please continue taking your cephalexin as prescribed. Please also take the bactrim as well. Please return if you have any new, worsening or concerning symptoms, especially increasing pain, fever and spreading redness. - Post Discharge Activity
[2019-01-03] MEDS ORDERED: SULFAMETHOXAZOLE/TRIMETHOPRIM 800MG/160MG D.S. TABLET PO ONE (21:53)
[2019-01-03] MEDS ORDERED: SULFAMETHOXAZOLE/TRIMETHOPRIM 800MG/160MG D.S. TABLET ONE (22:05)
== END 2019-01-03 22:10 | disposition home or self-care (01) ==
LOC: JER 20:35
PROC: 0H9U0ZZ Drainage of Left Breast, Open Approach (ICD-10-PCS; principal; 2019-01-03)
PROC: 3E023BZ Introduction of Anesthetic Agent into Muscle, Percutaneous Approach (ICD-10-PCS; 2019-01-03)
DX: N61.1 Abscess of the breast and nipple (principal)
CPT/HCPCS: 10060; 96372; 99281-25